=== PATIENT | female | born 1980 | race Caucasian/White ===

== ENCOUNTER → 2016-06-15 | Outpatient (REF) | payer OTHER | LOC: M SFHCWAGY 09:20 | PROVIDERS: ATTEND Nurse Practitioner Women's Health | DX: Z12.4 Encounter for screening for malignant neoplasm of cervix (principal); R87.610 Atypical squamous cells of undetermined significance on cytologic smear of cervix (ASC-US) ==

== ENCOUNTER → 2016-06-23 | Outpatient (CLI) | payer OTHER ==
--- NOTE | 2016-06-23 12:34 | REP ---
Pelvic sonography: History: Irregular menses. Findings: Transabdominal and transvaginal scanning are performed. Uterine dimensions are normal at 7.1 x 2.9 x 4.9 cm. Endometrium is 1.3 cm thick and somewhat heterogeneous. There are Nabothian cysts in the cervix. Normal ovaries are seen bilaterally. Right ovary measures 3.0 x 2.6 x 2.4 cm. Left ovary measures 3.7 x 2.3 x 1.8 cm. Visualized bladder veliz are smooth. Impression: Normal pelvic sonography.
== END ==
LOC: M WHC 10:18
PROVIDERS: ATTEND Nurse Practitioner Women's Health
DX: N92.6 Irregular menstruation, unspecified (principal); E66.01 Morbid (severe) obesity due to excess calories

== ENCOUNTER → 2016-08-03 | Outpatient (REF) | payer OTHER | LOC: M SFHCWAGY 11:59 | PROVIDERS: ATTEND Nurse Practitioner Women's Health | DX: N85.00 Endometrial hyperplasia, unspecified (principal) ==

== ENCOUNTER → 2016-09-07 | Day surgery (SDC) | payer OTHER ==
[~2016-09-07] VITALS: Ht 175.3 cm; Wt 158.8 kg
[~2016-09-07] MED LIST: IBUPROFEN 600 MG TAB PO PRN; KETOROLAC 60 MG/2 ML VIAL (J1885) As Ordered ONE; LIDOCAINE 2% INJ 100 MG/5 ML SDV (FOR ANES.) As Ordered ONE; LR 1,000 ML IV SCH; MIDAZOLAM INJ 2 MG/2 ML VIAL (J2250) As Ordered ONE; ONDANSETRON 4MG/2ML VIAL (J2405) As Ordered ONE; ONDANSETRON 4MG/2ML VIAL (J2405) IV PRN; PERCOCET 5MG/325MG TAB As Ordered ONE; PROPOFOL 200 MG/20 ML VIAL As Ordered ONE; SEVOFLURANE INHAL SOLN 250 ML BTL As Ordered ONE; TOPA50TA7 PO; fentaNYL 100 MCG/2 ML INJECTION (J3010) As Ordered ONE
[2016-09-07 10:48] LABS: CONTROL LINE UCG INT CTR LINE PRESENT
[2016-09-07] MEDS: PERCOCET 5MG/325MG TAB PO PRN ×2 (15:40→17:20)
[2016-09-07] MEDS: fentaNYL 100 MCG/2 ML INJECTION (J3010) IV PRN ×4 (15:40→15:55)
--- NOTE | 2016-09-07 16:42 | RO ---
DATE OF PROCEDURE: 09/07/2016 PREOPERATIVE DIAGNOSIS: 1. Menometrorrhagia with endometrial hyperplasia by office biopsy. POSTOPERATIVE DIAGNOSIS: 1. Menometrorrhagia with endometrial hyperplasia by office biopsy. 2. Endometrial polyps. PROCEDURE: Dilation and curettage (D and C), hysteroscopy with MyoSure resection so we were able to remove the polyps in their entirety. SURGEON: Dr. Charity Thomson OPERATIONS ACCOUNTANT: ANESTHESIA: General. DESCRIPTION OF PROCEDURE: Alyse was brought to the operating room where sufficient general anesthesia was induced, and she was draped, prepped and positioned in the usual sterile fashion, the bladder emptied and the cervix grasped with a single-tooth tenaculum. The uterus was sounded to 9 and then the cervix was carefully dilated in order to allow the introduction of the hysteroscope, which was used to visualize the endometrial cavity. At the fundus, there was a little bit just general overgrowth and vascularity to the tissues, and then in the lower uterine segment arising both from the left posterior and the right side in the midline, there were several endometrial polyps. We placed the MyoSure resector, and we were able to remove these polyps in their entirety and send them to the pathologist for further evaluation. We were also able to remove the endometrium and sample all of that area of overgrowth and vascularity of the fundus, as well as resecting the polyps completely. We were then able to see an empty uterine cavity with the endometrium resected and the polyps resected. We were able to do circumferential resection with the MyoSure and could palpate with the curette that there was normal uterine cry throughout with a final curettage just to make sure there was nothing palpably unusual about the uterus and confirm absence of other abnormal lesion, then ended the procedure. Estimated blood loss for the procedure was about 5 mL or less. Fluid replacement was crystalloid. Complications: None. Condition and Disposition: Alyse tolerated the procedure well and was recovering in the recovery room in good condition.
[2016-09-07 18:20] VITALS: BP 128/73
== END ==
LOC: M SDC 10:03
PROVIDERS: ATTEND Obstetrics & Gynecology
DX: N92.1 Excessive and frequent menstruation with irregular cycle (principal); N84.0 Polyp of corpus uteri; G43.909 Migraine, unspecified, not intractable, without status migrainosus; E66.9 Obesity, unspecified; Z79.899 Other long term (current) drug therapy; Z91.030 Bee allergy status

== ENCOUNTER → 2016-09-28 | Outpatient (CLI) | payer OTHER ==
[~2016-09-28] MED LIST changes: -IBUPROFEN 600 MG TAB PO PRN; -KETOROLAC 60 MG/2 ML VIAL (J1885) As Ordered ONE; -LIDOCAINE 2% INJ 100 MG/5 ML SDV (FOR ANES.) As Ordered ONE; -LR 1,000 ML IV SCH; -MIDAZOLAM INJ 2 MG/2 ML VIAL (J2250) As Ordered ONE; -ONDANSETRON 4MG/2ML VIAL (J2405) As Ordered ONE; -ONDANSETRON 4MG/2ML VIAL (J2405) IV PRN; -PERCOCET 5MG/325MG TAB As Ordered ONE; -PROPOFOL 200 MG/20 ML VIAL As Ordered ONE; -SEVOFLURANE INHAL SOLN 250 ML BTL As Ordered ONE; -fentaNYL 100 MCG/2 ML INJECTION (J3010) As Ordered ONE
[2016-09-28 10:56] LABS: BASO % 0.5 % (0.0-1.0); EOS # 0.2 K/mm3 (0.0-0.50); EOS % 1.9 % (0.0-3.0); LYMPH # 2.8 K/mm3 (1.5-4.5); LYMPH % 36.7 % (24.0-44.0); MEAN CORPUSCULAR HEMOGLOBIN 30.5 pg (27.0-33.0); MEAN CORPUSCULAR HGB CONC 33.7 g/dl (32.0-36.5); MEAN CORPUSCULAR VOLUME 90.4 fl (80.0-96.0); MONO # 0.5 K/mm3 (0.0-0.8); MONO % 6.1 % (0.0-5.0); NEUTROPHILS # 4.1 K/mm3 (1.8-7.7); NEUTROPHILS % 52.7 % (36.0-66.0); RED CELL DISTRIBUTION WIDTH 12.5 % (11.5-14.5); WHITE BLOOD COUNT 7.8 K/mm3 (4.0-10.0)
[2016-09-28 11:36] LABS: ALBUMIN 3.4 GM/DL (3.2-5.2); ALBUMIN/GLOBULIN RATIO 0.94 (1.00-1.93); ALKALINE PHOSPHATASE 83 U/L (45-117); ALT/SGPT 25 U/L (12-78); ANION GAP 6 MEQ/L (8-16); AST/SGOT 9 U/L (15-37); BILIRUBIN,TOTAL 0.5 MG/DL (0.2-1.0); BLOOD UREA NITROGEN 18 MG/DL (7-18); CALCIUM LEVEL 8.3 MG/DL (8.5-10.1); CARBON DIOXIDE LEVEL 27 MEQ/L (21-32); CHLORIDE LEVEL 107 MEQ/L (98-107); CHOLESTEROL LEVEL 208 MG/DL (<200); CREATININE FOR GFR 0.76 MG/DL (0.55-1.02); GLOMERULAR FILTRATION RATE > 60.0 (>60); GLUCOSE, FASTING 124 MG/DL (70-105); POTASSIUM SERUM 4.3 MEQ/L (3.5-5.1); SODIUM LEVEL 140 MEQ/L (136-145); TRIGLYCERIDES LEVEL 225 MG/DL (<150)
== END ==
LOC: M LAB 10:31
PROVIDERS: ATTEND Physician Assistant Medical
DX: G43.709 Chronic migraine without aura, not intractable, without status migrainosus (principal); E78.2 Mixed hyperlipidemia

== ENCOUNTER → 2016-12-09 | Outpatient (CLI) | payer OTHER ==
[~2016-12-09] MED LIST changes: -TOPA50TA7 PO; +TOPA50TA8 PO
--- NOTE | 2016-12-14 05:47 | SLEEPCENT ---
DATE OF PROCEDURE: 12/09/2016 ORDERED BY: Yenni Petersen. INTERPRETATION: Nocturnal polysomnography was performed for evaluation of sleep physiology in this patient with a history of excessive somnolence, snoring, morning headaches and nonrestorative sleep with comorbidities of obesity. 7 hours and 56 minutes of data were reviewed. There were 371 minutes of sleep identified. Sleep latency was prolonged at 59 minutes. REM latency was prolonged at 235 minutes. Sleep architecture initially showed poor progression but progression improved later in the study. There were 2 long REM periods appreciated. Overall sleep efficiency was 79%. The patient's EKG showed a sinus rhythm with an average heart rate of 62 beats per minute. EEG showed some worsening in background. No focal events were identified. Normal wave forms for awake and sleep were seen. There were no respiratory events identified of 10 seconds in duration or greater. The apnea-hypopnea index was 0. Significant snoring was however noted over the course of the study and respiratory related arousals from this snoring occurred 2.9 times per hour. There was significant limb activity, four trains of 30 events and limb movement arousal index of 12.9. IMPRESSION: 1. Periodic limb movement disorder (G47.61). Limb movement arousal index 12.9. 2. Snoring with respiratory related arousals 2.9 times per hour. RECOMMENDATION: Interventions to reduce the frequency of limb activity should help consolidate the patient's sleep. Additionally interventions to optimize upper airway tone may be helpful to address the snoring.
== END ==
LOC: M SLEEP 20:00
PROVIDERS: ATTEND Nurse Practitioner Adult Health
DX: G47.30 Sleep apnea, unspecified (principal)

== ENCOUNTER → 2017-01-02 | Outpatient (CLI) | payer OTHER ==
[2017-01-02 09:42] LABS: ALBUMIN 3.5 GM/DL (3.2-5.2); ALBUMIN/GLOBULIN RATIO 1.03 (1.00-1.93); ALKALINE PHOSPHATASE 68 U/L (45-117); ALT/SGPT 27 U/L (12-78); ANION GAP 7 MEQ/L (8-16); AST/SGOT 10 U/L (15-37); BILIRUBIN,TOTAL 0.7 MG/DL (0.2-1.0); BLOOD UREA NITROGEN 13 MG/DL (7-18); CALCIUM LEVEL 8.6 MG/DL (8.5-10.1); CARBON DIOXIDE LEVEL 26 MEQ/L (21-32); CHLORIDE LEVEL 109 MEQ/L (98-107); CHOLESTEROL LEVEL 175 MG/DL (<200); GLOMERULAR FILTRATION RATE > 60.0 (>60); GLUCOSE, FASTING 100 MG/DL (70-105); POTASSIUM SERUM 4.3 MEQ/L (3.5-5.1); SODIUM LEVEL 142 MEQ/L (136-145); TOTAL PROTEIN 6.9 GM/DL (6.4-8.2); TRIGLYCERIDES LEVEL 135 MG/DL (<150)
== END ==
LOC: M LAB 08:16
PROVIDERS: ATTEND Physician Assistant Medical
DX: E78.2 Mixed hyperlipidemia (principal); E55.9 Vitamin D deficiency, unspecified; R73.9 Hyperglycemia, unspecified

== ENCOUNTER → 2017-01-10 | Outpatient (CLI) | payer OTHER ==
[~2017-01-10] MED LIST changes: +E-Z-GAS II EFFERVESCENT PACKET (SODIUM BICARB./CITRIC ACID/SIMETHICONE) As Ordered ONE; +E-Z-HD 98% w/w 340GM SUSP BTL As Ordered ONE; +E-Z-PAQUE 96% w/w SUSP 176GM BTL As Ordered ONE
--- NOTE | 2017-01-10 21:11 | REP ---
ESOPHAGRAM: The procedure was performed by VELIA Ríos under the direct supervision of Dr. Morin. All imaging was reviewed with Dr. Morin prior to dictation. The patient was able to ingest liquid barium and air in a quantity sufficient to produce a double contrast examination. The oral and pharyngeal stages of deglutition were within normal limits. Esophageal transport was prompt and efficient. There was no evidence of esophagitis, stricture, mucosal ring or hiatal hernia. Gastroesophageal reflux was not observed on this exam. IMPRESSION: Unremarkable double contrast esophagram Reviewed by VELIA Hi 01/11/2017 11:14 AEdited and Signed by Malvin Morin MD 01/11/2017 03:08 P
== END ==
LOC: M RAD 09:04
PROVIDERS: ATTEND Physician Assistant Medical
DX: R13.10 Dysphagia, unspecified (principal)

== ENCOUNTER → 2017-02-27 | Outpatient (REF) | payer OTHER ==
[~2017-02-27] MED LIST changes: -E-Z-GAS II EFFERVESCENT PACKET (SODIUM BICARB./CITRIC ACID/SIMETHICONE) As Ordered ONE; -E-Z-HD 98% w/w 340GM SUSP BTL As Ordered ONE; -E-Z-PAQUE 96% w/w SUSP 176GM BTL As Ordered ONE
== END ==
LOC: M SFHCWAGY 10:28
PROVIDERS: ATTEND Nurse Practitioner Women's Health
DX: N85.2 Hypertrophy of uterus (principal); D26.0 Other benign neoplasm of cervix uteri

== ENCOUNTER 2017-06-29 08:06 | Emergency (ER) | payer OTHER ==
[2017-06-29] MEDS: NORCO, ANEXSIA 5/325MG TABLET (HYDROcodone/ACETAMINOPHEN) PO (09:45)
[2017-06-29] MEDS: CYCLOBENZAPRINE 10 MG TAB PO (09:46)
== END 2017-06-29 11:16 | disposition home or self-care (01) ==
LOC: M ED 08:06
DX: S43.401A Unspecified sprain of right shoulder joint, initial encounter (principal); S39.012A Strain of muscle, fascia and tendon of lower back, initial encounter; M47.812 Spondylosis without myelopathy or radiculopathy, cervical region; W18.2XXA Fall in (into) shower or empty bathtub, initial encounter; Y92.098 Other place in other non-institutional residence as the place of occurrence of the external cause; Z87.891 Personal history of nicotine dependence; Z91.030 Bee allergy status; Z79.899 Other long term (current) drug therapy
CPT/HCPCS: 72040

== ENCOUNTER 2017-07-17 13:18 | Outpatient (RCR) | payer OTHER | END 2017-07-18 | LOC: M PT 13:18 | DX: Z51.89 Encounter for other specified aftercare (principal); M54.2 Cervicalgia | CPT/HCPCS: 97110 ==

== ENCOUNTER 2017-07-26 17:21 | Emergency (ER) | payer OTHER ==
[2017-07-26 20:18] LABS: INFLUENZA A AMPLIFICATION NEGATIVE (NEGATIVE); INFLUENZA B AMPLIFICATION NEGATIVE (NEGATIVE)
[2017-07-26] MEDS: IBUPROFEN 600 MG TAB PO (20:58)
== END 2017-07-26 21:07 | disposition home or self-care (01) ==
LOC: M ED 17:21
DX: J01.90 Acute sinusitis, unspecified (principal); B00.9 Herpesviral infection, unspecified; K21.9 Gastro-esophageal reflux disease without esophagitis; G43.909 Migraine, unspecified, not intractable, without status migrainosus; J30.2 Other seasonal allergic rhinitis; Z79.899 Other long term (current) drug therapy; Z91.030 Bee allergy status
CPT/HCPCS: 87502

== ENCOUNTER → 2017-09-04 | Outpatient (CLI) | payer OTHER ==
[2017-09-04 11:25] LABS: HEMATOCRIT 41.9 % (36.0-47.0); HEMOGLOBIN 14.4 g/dl (12.0-15.5); MEAN CORPUSCULAR HEMOGLOBIN 29.6 pg (27.0-33.0); MEAN CORPUSCULAR HGB CONC 34.4 g/dl (32.0-36.5); MEAN CORPUSCULAR VOLUME 86.2 fl (80.0-96.0); PLATELET COUNT, AUTOMATED 326 10^3/uL (150-450); RED BLOOD COUNT 4.86 10^6/uL (4.00-5.40); RED CELL DISTRIBUTION WIDTH 12.5 % (11.5-14.5); WHITE BLOOD COUNT 6.8 10^3/uL (4.0-10.0)
[2017-09-04 12:14] LABS: TOTAL 25(OH) VITAMIN D 62.5 NG/ML (30.0-100.0); TOTAL T3 158.3 NG/DL (60.0-181.0)
[2017-09-04 12:15] LABS: VITAMIN B12 LEVEL 868 PG/ML (247-911)
[2017-09-04 12:39] LABS: ALBUMIN 4.1 GM/DL (3.2-5.2); ALBUMIN/GLOBULIN RATIO 1.03 (1.00-1.93); ALKALINE PHOSPHATASE 82 U/L (45-117); ALT/SGPT 31 U/L (12-78); ANION GAP 8 MEQ/L (8-16); AST/SGOT 18 U/L (7-37); BILIRUBIN,TOTAL 1.4 MG/DL (0.2-1.0); BLOOD UREA NITROGEN 11 MG/DL (7-18); CALCIUM LEVEL 9.3 MG/DL (8.5-10.1); CARBON DIOXIDE LEVEL 24 MEQ/L (21-32); CHLORIDE LEVEL 109 MEQ/L (98-107); CHOLESTEROL LEVEL 214 MG/DL (<200); CHOLESTEROL RISK RATIO 6.294 (<5); CREATININE FOR GFR 0.83 MG/DL (0.55-1.30); GLOMERULAR FILTRATION RATE > 60.0 (>60); GLUCOSE, FASTING 96 MG/DL (70-100); HDL CHOLESTEROL 34 MG/DL (>40); IRON (FE) 88 UG/DL (50-170); NON-HDL-C 180 MG/DL; PERCENT SATURATION 22.5 % (13.2-45.0); POTASSIUM SERUM 4.3 MEQ/L (3.5-5.1); SODIUM LEVEL 141 MEQ/L (136-145); THYROXINE (T4) 11.6 UG/DL (4.5-12.0); TOTAL IRON BINDING CAPACITY 391 UG/DL (250-450); TOTAL PROTEIN 8.1 GM/DL (6.4-8.2); TRIGLYCERIDES LEVEL 145 MG/DL (<150)
== END ==
LOC: M LAB 10:57
DX: I10 Essential (primary) hypertension (principal); R53.83 Other fatigue; E03.9 Hypothyroidism, unspecified
CPT/HCPCS: 71046

== ENCOUNTER 2017-11-09 14:11 | Emergency (ER) | payer OTHER ==
[2017-11-09] MEDS ORDERED: NS 1,000 ML IV (14:45)
[2017-11-09] MEDS: NS 1,000 ML IV (14:45)
[2017-11-09 14:52] LABS: BEDSIDE GLUCOSE 103 MG/DL (70-105)
[2017-11-09 15:04] LABS: CALCIUM OXALATE CRYSTALS RFX LARGE; KETONE, URINE AUTO RFX NEGATIVE (NEGATIVE); LEUKOCYTE ESTERASE UR AUTO RFX TRACE (NEGATIVE); MUCUS, URINE RFX SMALL (NEGATIVE); NITRITE, URINE AUTO RFX NEGATIVE (NEGATIVE); RBC, URINE AUTO RFX 5 /HPF (0-3); SPECIFIC GRAVITY UR AUTO RFX 1.027 (1.002-1.035); SQUAM EPITHELIAL CELL UR AURFX 5 /HPF (0-6); WBC, URINE AUTO RFX 5 /HPF (0-3)
[2017-11-09 15:15] LABS: BASO % 0.4 % (0.0-1.0); EOS # 0.1 10^3/uL (0.0-0.50); EOS % 1.8 % (0.0-3.0); HEMATOCRIT 38.9 % (36.0-47.0); HEMOGLOBIN 13.5 g/dl (12.0-15.5); IMMATURE GRANULOCYTE % 0.1 % (0-3.0); LYMPH % 39.1 % (24.0-44.0); MEAN CORPUSCULAR HEMOGLOBIN 30.3 pg (27.0-33.0); MEAN CORPUSCULAR HGB CONC 34.7 g/dl (32.0-36.5); MEAN CORPUSCULAR VOLUME 87.4 fl (80.0-96.0); MONO # 0.8 10^3/uL (0.0-0.8); MONO % 10.2 % (0.0-5.0); NEUTROPHILS # 3.7 10^3/uL (1.8-7.7); NEUTROPHILS % 48.4 % (36.0-66.0); PLATELET COUNT, AUTOMATED 249 10^3/uL (150-450); RED BLOOD COUNT 4.45 10^6/uL (4.00-5.40); RED CELL DISTRIBUTION WIDTH 13.4 % (11.5-14.5); WHITE BLOOD COUNT 7.6 10^3/uL (4.0-10.0)
[2017-11-09 15:56] LABS: ALBUMIN/GLOBULIN RATIO 1.05 (1.00-1.93); ALKALINE PHOSPHATASE 79 U/L (45-117); ALT/SGPT 74 U/L (12-78); AMYLASE 23 U/L (25-115); ANION GAP 8 MEQ/L (8-16); AST/SGOT 36 U/L (7-37); BILIRUBIN,DIRECT 0.3 MG/DL (0.0-0.2); BILIRUBIN,TOTAL 1.4 MG/DL (0.2-1.0); BLOOD UREA NITROGEN 7 MG/DL (7-18); CALCIUM LEVEL 9.2 MG/DL (8.5-10.1); CARBON DIOXIDE LEVEL 28 MEQ/L (21-32); CHLORIDE LEVEL 106 MEQ/L (98-107); CREATININE FOR GFR 0.85 MG/DL (0.55-1.30); GLOMERULAR FILTRATION RATE > 60.0 (>60); GLUCOSE, FASTING 88 MG/DL (70-100); LIPASE 107 U/L (73-393); POTASSIUM SERUM 3.7 MEQ/L (3.5-5.1); SODIUM LEVEL 142 MEQ/L (136-145); TOTAL PROTEIN 7.8 GM/DL (6.4-8.2)
[2017-11-09 16:17] LABS: CK-MB VALUE MASS < 1.0 NG/ML (<3.6); CPK CREATINE PHOSPHOKINASE 60 U/L (26-192); MB/CK RELATIVE INDEX 1.66 (< OR =4); TROPONIN I < 0.02 NG/ML (< 0.10)
== END 2017-11-09 17:30 | disposition home or self-care (01) ==
LOC: M ED 14:11
DX: N39.0 Urinary tract infection, site not specified (principal); R53.83 Other fatigue; I10 Essential (primary) hypertension; Z98.84 Bariatric surgery status; Z72.0 Tobacco use; Z79.899 Other long term (current) drug therapy; Z91.030 Bee allergy status
CPT/HCPCS: 93005

== ENCOUNTER → 2017-11-14 | Outpatient (CLI) | payer OTHER ==
[2017-11-14 09:10] LABS: BASO % 0.5 % (0.0-1.0); EOS # 0.2 10^3/uL (0.0-0.50); EOS % 4.2 % (0.0-3.0); HEMATOCRIT 38.9 % (36.0-47.0); IMMATURE GRANULOCYTE % 0.2 % (0-3.0); LYMPH # 1.8 10^3/uL (1.5-4.5); LYMPH % 44.9 % (24.0-44.0); MEAN CORPUSCULAR HEMOGLOBIN 29.8 pg (27.0-33.0); MEAN CORPUSCULAR HGB CONC 33.4 g/dl (32.0-36.5); MEAN CORPUSCULAR VOLUME 89.2 fl (80.0-96.0); MONO # 0.5 10^3/uL (0.0-0.8); MONO % 11.2 % (0.0-5.0); NEUTROPHILS # 1.6 10^3/uL (1.8-7.7); PLATELET COUNT, AUTOMATED 232 10^3/uL (150-450); RED BLOOD COUNT 4.36 10^6/uL (4.00-5.40); RED CELL DISTRIBUTION WIDTH 13.9 % (11.5-14.5)
[2017-11-14 09:11] LABS: HEMATOCRIT 38.9 % (36.0-47.0)
[2017-11-14 09:29] LABS: ESTIMATED AVERAGE GLUCOSE 97 MG/DL (60-110)
[2017-11-14 09:33] LABS: ALBUMIN 3.6 GM/DL (3.2-5.2); ALBUMIN/GLOBULIN RATIO 1.09 (1.00-1.93); ALKALINE PHOSPHATASE 80 U/L (45-117); ALT/SGPT 58 U/L (12-78); ANION GAP 9 MEQ/L (8-16); AST/SGOT 26 U/L (7-37); BILIRUBIN,TOTAL 1.2 MG/DL (0.2-1.0); BLOOD UREA NITROGEN 7 MG/DL (7-18); CALCIUM LEVEL 8.4 MG/DL (8.5-10.1); CARBON DIOXIDE LEVEL 27 MEQ/L (21-32); CHLORIDE LEVEL 110 MEQ/L (98-107); CREATININE FOR GFR 0.66 MG/DL (0.55-1.30); FERRITIN 168 NG/ML (8-252); GLOMERULAR FILTRATION RATE > 60.0 (>60); GLUCOSE, FASTING 94 MG/DL (70-100); IRON (FE) 72 UG/DL (50-170); MAGNESIUM LEVEL 2.1 MG/DL (1.8-2.4); PERCENT SATURATION 20.7 % (13.2-45.0); PHOSPHORUS LEVEL 3.8 MG/DL (2.5-4.9); POTASSIUM SERUM 4.3 MEQ/L (3.5-5.1); SODIUM LEVEL 146 MEQ/L (136-145); TOTAL IRON BINDING CAPACITY 348 UG/DL (250-450); TOTAL PROTEIN 6.9 GM/DL (6.4-8.2)
[2017-11-14 09:38] LABS: TOTAL 25(OH) VITAMIN D 61.3 NG/ML (30.0-100.0); VITAMIN B12 LEVEL 1716 PG/ML (247-911)
[2017-11-16 14:54] LABS: PRETREATED FOLATE FOR RBCFOL 14.1 NG/ML; RBC FOLATE 761.2 NG/ML (280-791)
[2017-11-17 12:02] LABS: VITAMIN B1 LEVEL WHOLE BLOOD 112.4 nmol/L (66.5-200.0)
== END ==
LOC: M LAB 08:20
DX: E55.9 Vitamin D deficiency, unspecified (principal); K91.2 Postsurgical malabsorption, not elsewhere classified; Z98.84 Bariatric surgery status
CPT/HCPCS: 83550

== ENCOUNTER 2018-04-20 13:05 | Emergency (ER) | payer OTHER | END 2018-04-20 15:27 | disposition home or self-care (01) | LOC: M ED 13:05 | DX: J06.9 Acute upper respiratory infection, unspecified (principal); Z98.84 Bariatric surgery status | CPT/HCPCS: 87633 ==

== ENCOUNTER → 2018-05-26 | Outpatient (CLI) | payer OTHER ==
[~2018-05-26] MED LIST changes: +CEFD1CAP8 PO; +CETI10TA; +CYCL10TA PO; +DIFL150T PO; +MACR100C43 PO; +MEGE20TA3; +NORCOTAB PO; +OMEP40CA2; +VALT500T PO; +VITA50005
[2018-05-26 11:31] LABS: BASO % 0.3 % (0.0-1.0); EOS # 0.1 10^3/uL (0.0-0.50); EOS % 1.6 % (0.0-3.0); HEMATOCRIT 38.8 % (36.0-47.0); HEMOGLOBIN 13.4 g/dl (12.0-15.5); LYMPH # 2.9 10^3/uL (1.5-4.5); MEAN CORPUSCULAR HEMOGLOBIN 31.1 pg (27.0-33.0); MEAN CORPUSCULAR HGB CONC 34.5 g/dl (32.0-36.5); MONO # 0.6 10^3/uL (0.0-0.8); MONO % 8.5 % (0.0-5.0); NEUTROPHILS # 2.9 10^3/uL (1.8-7.7); NEUTROPHILS % 44.4 % (36.0-66.0); PLATELET COUNT, AUTOMATED 292 10^3/uL (150-450); RED BLOOD COUNT 4.31 10^6/uL (4.00-5.40); WHITE BLOOD COUNT 6.5 10^3/uL (4.0-10.0)
[2018-05-26 11:33] LABS: HEMATOCRIT 38.8 % (36.0-47.0)
[2018-05-26 12:08] LABS: ALBUMIN 3.8 GM/DL (3.2-5.2); ALT/SGPT 44 U/L (12-78); BILIRUBIN,TOTAL 0.8 MG/DL (0.2-1.0); BLOOD UREA NITROGEN 12 MG/DL (7-18); CALCIUM LEVEL 8.9 MG/DL (8.5-10.1); CARBON DIOXIDE LEVEL 25 MEQ/L (21-32); CHLORIDE LEVEL 107 MEQ/L (98-107); CREATININE FOR GFR 0.74 MG/DL (0.55-1.30); FERRITIN 182 NG/ML (8-252); GLOMERULAR FILTRATION RATE > 60.0 (>60); GLUCOSE, FASTING 100 MG/DL (70-100); IRON (FE) 80 UG/DL (50-170); MAGNESIUM LEVEL 2.2 MG/DL (1.8-2.4); PERCENT SATURATION 22.2 % (13.2-45.0); PHOSPHORUS LEVEL 3.4 MG/DL (2.5-4.9); POTASSIUM SERUM 3.9 MEQ/L (3.5-5.1); SODIUM LEVEL 141 MEQ/L (136-145); TOTAL IRON BINDING CAPACITY 360 UG/DL (250-450)
== END ==
LOC: M LAB 11:02
PROVIDERS: ATTEND Surgery
DX: K91.2 Postsurgical malabsorption, not elsewhere classified (principal); Z98.84 Bariatric surgery status; E55.9 Vitamin D deficiency, unspecified

== ENCOUNTER 2018-07-05 20:55 | Emergency (ER) | payer OTHER ==
[~2018-07-05] VITALS: Ht 175.3 cm; Wt 120.9 kg
[2018-07-05] MEDS ORDERED: NS 1,000 ML IV ONE (21:30)
[2018-07-05] MEDS ORDERED: PANTOPRAZOLE 40MG INJ (PROTONIX) (C9113) IV ONE (21:30)
[2018-07-05] MEDS ORDERED: METOCLOPRAMIDE INJ 10MG/2ML VIAL (J2765) IV ONE (21:30)
[2018-07-05 22:24] LABS: BASO % 0.4 % (0.0-1.0); EOS # 0.1 10^3/uL (0.0-0.50); EOS % 1.4 % (0.0-3.0); HEMOGLOBIN 14.4 g/dl (12.0-15.5); LYMPH # 3.9 10^3/uL (1.5-4.5); MEAN CORPUSCULAR HEMOGLOBIN 31.2 pg (27.0-33.0); MEAN CORPUSCULAR HGB CONC 34.3 g/dl (32.0-36.5); MEAN CORPUSCULAR VOLUME 90.9 fl (80.0-96.0); MONO # 0.7 10^3/uL (0.0-0.8); MONO % 6.9 % (0.0-5.0); NEUTROPHILS # 5.2 10^3/uL (1.8-7.7); NEUTROPHILS % 51.9 % (36.0-66.0); PLATELET COUNT, AUTOMATED 323 10^3/uL (150-450); RED BLOOD COUNT 4.62 10^6/uL (4.00-5.40); WHITE BLOOD COUNT 10.1 10^3/uL (4.0-10.0)
[2018-07-05 22:53] LABS: ALBUMIN 3.9 GM/DL (3.2-5.2); ALT/SGPT 51 U/L (12-78); BILIRUBIN,DIRECT 0.2 MG/DL (0.0-0.2); BILIRUBIN,TOTAL 0.8 MG/DL (0.2-1.0); BLOOD UREA NITROGEN 15 MG/DL (7-18); CALCIUM LEVEL 8.9 MG/DL (8.5-10.1); CARBON DIOXIDE LEVEL 24 MEQ/L (21-32); CHLORIDE LEVEL 108 MEQ/L (98-107); CREATININE FOR GFR 0.74 MG/DL (0.55-1.30); GLOMERULAR FILTRATION RATE > 60.0 (>60); GLUCOSE, FASTING 95 MG/DL (70-100); LIPASE 149 U/L (73-393); POTASSIUM SERUM 4.3 MEQ/L (3.5-5.1); SODIUM LEVEL 140 MEQ/L (136-145); TOTAL PROTEIN 7.5 GM/DL (6.4-8.2)
[2018-07-05 23:04] LABS: HCG, SERUM QUALITATIVE NEGATIVE (NEGATIVE)
--- NOTE | 2018-07-06 00:13 | REPVR ---
EXAM: CT Abdomen and Pelvis Without Contrast EXAM DATE/TIME: 07/05/2018 9:17 PM CLINICAL HISTORY: 37 years old, female; Pain; Abdominal pain; Generalized; Additional info: Abd pain TECHNIQUE: Axial computed tomography images of the abdomen and pelvis without contrast. All CT scans at this facility use at least one of these dose optimization techniques: automated exposure control; mA and/or kV adjustment per patient size (includes targeted exams where dose is matched to clinical indication); or iterative reconstruction. Coronal and sagittal reformatted images were created and reviewed. COMPARISON: PELVIS NON-OB COMPLETE US 06/23/2016 11:24 AM FINDINGS: Lower thorax: Clear lung bases. The heart is normal in size. There is no evidence of pericardial effusion. ABDOMEN: Liver: Normal liver. Gallbladder and bile ducts: Normal gallbladder. Pancreas: Normal pancreas. Spleen: Normal spleen. Adrenals: 2.3 CM by 1.3 CM oval nodule of the left adrenal gland probably an adenoma. Recommend followup CT scan in 6 months for reevaluation to document stability. Kidneys and ureters: There is no evidence of calcified stone right or left kidney. The urinary bladder is empty and cannot be evaluated. There is a 3 cm exophytic cyst upper pole left kidney. Stomach and bowel: The cecum is in the right pelvis. The patient has had a gastric bypass with multiple surgical clips in the left upper quadrant. Mild distention of loops of small bowel in the lower abdomen with bubbly fecal-like material. This may be secondary to ileus or enteritis. If there are further symptoms a CT scan with oral contrast might be considered. Appendix: Normal appearing appendix. Reproductive: Normal uterus. Normal sized ovaries. ABDOMEN and PELVIS: Intraperitoneal space: There is no evidence of pneumoperitoneum. There is no evidence of free fluid in the abdomen or the pelvis. Bones/joints: No acute fracture. No dislocation. Soft tissues: Unremarkable. Vasculature: The aorta is normal in size. Lymph nodes: There is no evidence of lymphadenopathy. IMPRESSION: 1. The patient has had a previous gastric bypass with surgical clips at the left upper quadrant. 2. There are mildly dilated loops of small bowel in the lower abdomen with bubbly fecal-like material. This could be the result of ileus or enteritis. However there are continued symptoms a followup CT with oral contrast would be helpful. 3. Oval nodule of the right adrenal gland probably an adenoma. Recommend followup CT scan in 6 months for reevaluation of this to document stability. Electronically signed by: Obey Wolf On 07/06/2018 00:13:01 AM
[2018-07-06 00:45] VITALS: BP 118/80
--- NOTE | 2018-07-15 18:50 | ED PDOC ---
Post-Departure Follow-Up dr blue faxed formal report of ct abd/p for fu Apple Brantley MD Jul 15, 2018 18:50
== END 2018-07-06 00:51 | disposition home or self-care (01) ==
LOC: M ED 20:55
DX: K56.7 Ileus, unspecified (principal)
CPT/HCPCS: 74176; 80048; 80076; 81001; 83690; 84703; 85025; 96374; 96375; 99284; C9113; J2765

== ENCOUNTER 2018-08-13 21:05 | Emergency (ER) | payer OTHER ==
[~2018-08-13] VITALS: Ht 175.3 cm; Wt 119.1 kg
[~2018-08-13 21:05] MED LIST changes: +HYDR-3715 PO; -NORCOTAB PO
[2018-08-13 22:16] LABS: INFLUENZA A AMPLIFICATION NEGATIVE (NEGATIVE); INFLUENZA B AMPLIFICATION NEGATIVE (NEGATIVE)
[2018-08-14] MEDS ORDERED: AUGM875T28 PO (00:48)
[2018-08-14] MEDS ORDERED: TESS100C PO (00:48)
[2018-08-14 00:57] VITALS: BP 117/72
[2018-08-14] MEDS ORDERED: BENZONATATE 100 MG CAP PO ONE (01:00)
[2018-08-14] MEDS ORDERED: AUGMENTIN 875 MG TAB PO ONE (01:00)
== END 2018-08-14 01:03 | disposition home or self-care (01) ==
LOC: M ED 21:05
DX: H66.90 Otitis media, unspecified, unspecified ear (principal)

== ENCOUNTER 2018-12-06 13:38 | Emergency (ER) | payer OTHER ==
[~2018-12-06] VITALS: Ht 175.3 cm; Wt 113.6 kg
[~2018-12-06 13:38] MED LIST changes: +AUGM875T28 PO; +TESS100C PO
[2018-12-06 14:14] LABS: BASO % 0.1 % (0.0-1.0); EOS # 0.2 10^3/uL (0.0-0.50); EOS % 2.3 % (0.0-3.0); HEMATOCRIT 38.1 % (36.0-47.0); HEMOGLOBIN 12.9 g/dl (12.0-15.5); LYMPH # 2.5 10^3/uL (1.5-4.5); LYMPH % 32.5 % (24.0-44.0); MEAN CORPUSCULAR HEMOGLOBIN 31.2 pg (27.0-33.0); MEAN CORPUSCULAR HGB CONC 33.9 g/dl (32.0-36.5); MONO # 0.6 10^3/uL (0.0-0.8); MONO % 8.2 % (0.0-5.0); NEUTROPHILS # 4.3 10^3/uL (1.8-7.7); NEUTROPHILS % 56.6 % (36.0-66.0); PLATELET COUNT, AUTOMATED 263 10^3/uL (150-450); RED BLOOD COUNT 4.14 10^6/uL (4.00-5.40); WHITE BLOOD COUNT 7.7 10^3/uL (4.0-10.0)
[2018-12-06 14:41] LABS: BLOOD UREA NITROGEN 14 MG/DL (7-18); CALCIUM LEVEL 8.7 MG/DL (8.5-10.1); CARBON DIOXIDE LEVEL 26 MEQ/L (21-32); CHLORIDE LEVEL 111 MEQ/L (98-107); CREATININE FOR GFR 0.69 MG/DL (0.55-1.30); GLOMERULAR FILTRATION RATE > 60.0 (>60); GLUCOSE, FASTING 93 MG/DL (70-100); POTASSIUM SERUM 4.4 MEQ/L (3.5-5.1); SODIUM LEVEL 142 MEQ/L (136-145)
[2018-12-06 14:42] LABS: ALBUMIN 3.7 GM/DL (3.2-5.2); ALT/SGPT 26 U/L (12-78); BILIRUBIN,DIRECT 0.3 MG/DL (0.0-0.2); LIPASE 161 U/L (73-393)
[2018-12-06] MEDS ORDERED: ISOVUE-370 76% 100ML VIAL (Q9967) As Ordered ONE (15:21)
[2018-12-06 15:29] LABS: CK-MB VALUE MASS < 1.0 NG/ML (<3.6); CPK CREATINE PHOSPHOKINASE 87 U/L (26-192); MB/CK RELATIVE INDEX 1.15 (< OR =4); TROPONIN I < 0.02 NG/ML (< 0.10)
[2018-12-06] MEDS ORDERED: SUCRALFATE SUSP 1GM/10ML UD PO ONE (15:30)
--- NOTE | 2018-12-06 16:57 | REP ---
CT ABDOMEN AND PELVIS WITH IV CONTRAST: TECHNIQUE: Axial contrast enhanced images from the lung bases to the pubic symphysis using 100 mL Isovue 370 intravenous contrast material with multiplanar reformations. Visualized lung bases demonstrate no infiltrate. The liver, spleen and left adrenal are unremarkable. Right adrenal demonstrates a nodule which is unchanged since the 07/05/2018 examination, most consistent with an adrenal adenoma measuring approximately 2 cm in diameter. Pancreas and right kidney are unremarkable. There is a left renal cyst superiorly and laterally 3.5 cm in maximum diameter. There is no hydronephrosis bilaterally. There is no abdominal aortic aneurysm. There is no adenopathy. There is no free air. I see no bowel wall thickening. There is no evidence of appendicitis. There is trace free fluid in the pelvis likely physiologic in nature. The ovaries appear normal with no evidence of pelvic mass. The urinary bladder is mildly distended and grossly unremarkable. No anterior abdominal wall defect is seen. IMPRESSION: Trace free fluid in the pelvis is likely physiologic in nature. Right adrenal nodule most consistent with an adenoma approximately 2.0 cm in diameter. Left renal cyst. No acute bowel inflammation seen. No free air or other acute finding. Electronically Signed by Malvin Morin MD 12/08/2018 07:30 P
[2018-12-06] MEDS ORDERED: SUCR1SS PO (17:02)
[2018-12-06] MEDS ORDERED: PEPC1TAB5 PO (17:02)
[2018-12-06 18:06] VITALS: BP 107/69
--- NOTE | 2018-12-06 21:12 | ECGEPIP ---
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
--- NOTE | 2018-12-10 12:28 | ED PDOC ---
Post-Departure Follow-Up dr blue faxed formal report of ct abd/p for fu Apple Brantley MD Dec 10, 2018 12:28
== END 2018-12-06 17:35 | disposition home or self-care (01) ==
LOC: M ED 13:38
DX: R10.9 Unspecified abdominal pain (principal); R11.0 Nausea; I10 Essential (primary) hypertension; Z79.899 Other long term (current) drug therapy; Z91.030 Bee allergy status
CPT/HCPCS: 36415; 74177; 80048; 80076; 81001; 82550; 82553; 83690; 84702; 85025; 93005; 99284; Q9967

== ENCOUNTER 2018-12-19 20:56 | Emergency (ER) | payer OTHER ==
[~2018-12-19] VITALS: Ht 175.3 cm; Wt 104.5 kg
[~2018-12-19 20:56] MED LIST changes: +PEPC1TAB5 PO; +SUCR1SS PO
[2018-12-19 20:57] VITALS: BP 122/77
[2018-12-19] MEDS ORDERED: ALL10TAB28 (21:06)
[2018-12-19] MEDS ORDERED: TRIA37.53 (21:06)
[2018-12-19] MEDS ORDERED: SUCR1TAB56 (21:06)
[2018-12-19] MEDS ORDERED: FAMO1TAB11 (21:06)
[2018-12-19] MEDS ORDERED: VITA500045 (21:06)
[2018-12-19] MEDS ORDERED: OMEP-221 (21:06)
[2018-12-20] MEDS ORDERED: traMADol 50 MG TAB PO ONE (00:15)
== END 2018-12-20 00:24 | disposition home or self-care (01) ==
LOC: M ED 20:56
DX: S09.90XA Unspecified injury of head, initial encounter (principal); W22.8XXA Striking against or struck by other objects, initial encounter; Y92.018 Other place in single-family (private) house as the place of occurrence of the external cause; K21.9 Gastro-esophageal reflux disease without esophagitis; Z79.899 Other long term (current) drug therapy; Z91.030 Bee allergy status

== ENCOUNTER 2019-02-16 14:29 | Emergency (ER) | payer OTHER ==
[~2019-02-16] VITALS: Ht 175.3 cm; Wt 114.0 kg
[~2019-02-16 14:29] MED LIST changes: +ALL10TAB29; +FAMO1TAB11; +OMEP-221; +SUCR1TAB56; +TRIA37.53; +VITA500045
[2019-02-16 15:28] LABS: BASO % 0.3 % (0.0-1.0); EOS # 0.1 10^3/uL (0.0-0.5); HEMATOCRIT 37.1 % (36.0-47.0); HEMOGLOBIN 12.8 g/dl (12.0-15.5); LYMPH # 2.5 10^3/uL (1.5-5.0); LYMPH % 34.6 % (24.0-44.0); MEAN CORPUSCULAR HGB CONC 34.5 g/dl (32.0-36.5); MEAN CORPUSCULAR VOLUME 92.8 fl (80.0-96.0); MONO # 0.5 10^3/uL (0.0-0.8); MONO % 7.5 % (0.0-5.0); NEUTROPHILS # 4.1 10^3/uL (1.5-8.5); NEUTROPHILS % 56.3 % (36.0-66.0); PLATELET COUNT, AUTOMATED 256 10^3/uL (150-450); WHITE BLOOD COUNT 7.2 10^3/uL (4.0-10.0)
[2019-02-16] MEDS ORDERED: NS 1,000 ML IV ONE (16:00)
[2019-02-16] MEDS ORDERED: MORPHINE 4 MG/ML 1ML VIAL/SYRINGE (J2270) IV ONE (16:00)
[2019-02-16] MEDS ORDERED: ONDANSETRON 4MG/2ML VIAL (J2405) IV ONE (16:00)
[2019-02-16 16:01] LABS: ALBUMIN 3.5 GM/DL (3.2-5.2); ALT/SGPT 18 U/L (12-78); BILIRUBIN,DIRECT 0.3 MG/DL (0.0-0.2); BILIRUBIN,TOTAL 1.1 MG/DL (0.2-1.0); BLOOD UREA NITROGEN 7 MG/DL (7-18); CALCIUM LEVEL 8.7 MG/DL (8.5-10.1); CARBON DIOXIDE LEVEL 28 MEQ/L (21-32); CHLORIDE LEVEL 108 MEQ/L (98-107); CREATININE FOR GFR 0.61 MG/DL (0.55-1.30); GLOMERULAR FILTRATION RATE > 60.0 (>60); GLUCOSE, FASTING 89 MG/DL (70-100); LIPASE 119 U/L (73-393); POTASSIUM SERUM 3.9 MEQ/L (3.5-5.1); SODIUM LEVEL 141 MEQ/L (136-145); TOTAL PROTEIN 6.3 GM/DL (6.4-8.2)
[2019-02-16] MEDS ORDERED: KETOROLAC 30 MG/ML VIAL (J1885) IV ONE (17:00)
[2019-02-16] MEDS ORDERED: SIME180C PO (19:15)
[2019-02-16 19:22] VITALS: BP 106/67
--- NOTE | 2019-02-16 19:33 | REPVR ---
PROCEDURE INFORMATION: Exam: US Pelvis Complete, Transabdominal and US Pelvis, Transvaginal Exam date and time: 02/16/2019 6:16 PM Clinical history: 38 years old, female; Abdominal pain; Lower abdomen; Additional info: Lower abd pain TECHNIQUE: Imaging protocol: Real-time transabdominal and transvaginal pelvic ultrasound (complete) with image documentation. Transvaginal imaging was used for better evaluation of the endometrium and adnexa. COMPARISON: PELVIS NON-OB COMPLETE US 06/23/2016 11:24 AM FINDINGS: Uterus/cervix: The uterus measures 8 CM in length by 3.2 CM in AP dimension by 4.9 CM in transverse dimension. The uterus is also anteverted. The endometrium measures approximately 7 mm in thickness and appearing within the range of normal. Small nabothian cysts are noted of the cervix. Right adnexa: The right ovary measures 3.8 CM in length by 2.6 CM in thickness. There are small follicular cysts in the right ovary. There is vascular flow of the right ovary with no evidence of torsion. Left adnexa: The left ovary measures 3 CM in length by 2.8 CM in thickness. There are follicular cysts on both ovaries. There is vascular flow the left ovary with no evidence of torsion. Free fluid: There is a small to moderate amount of free fluid within the lower pelvis. Bladder: The urinary bladder cannot be completely evaluated because there is only a small amount of air within. IMPRESSION: 1. Small to moderate amount of free fluid in the lower pelvis. 2. Normal-appearing ovaries. Electronically signed by: Obey Wolf On 02/16/2019 19:32:52 PM
--- NOTE | 2019-02-17 08:18 | REP ---
ACUTE ABDOMINAL SERIES: 02/16/2019. Clinical history: Lower abdominal pain. Comparison: PA chest 09/04/2017, CT abdomen pelvis 12/06/2018. Findings: PA chest. Lungs adequately inflated. There is no infiltrate, effusion, atelectasis or mass. There is no free air under the diaphragm. Aorta and airway intact. Bones unremarkable. Flat upright abdomen: Two views supine and one upright show nonspecific gas pattern. There are a couple of air-fluid levels in nondilated bowel loops in the upper abdomen. I see no perforation or free air evident on this study. No abnormal soft-tissue calcification. No visible mass or acute bony finding. Impression: 1. Nonspecific gas pattern without obstruction, mass or free air. A few air-fluid levels in nondilated bowel loops may reflect some gastroenteritis or ileus and are nonspecific. No definite evidence of obstruction at this time. 2. Negative PA chest. Electronically Signed by Tushar Cordoba MD 02/17/2019 10:05 A
== END 2019-02-16 19:38 | disposition home or self-care (01) ==
LOC: M ED 14:29
DX: R10.30 Lower abdominal pain, unspecified (principal); Z91.030 Bee allergy status; Z79.899 Other long term (current) drug therapy
CPT/HCPCS: 74021; 76830; 76856; 80048; 80076; 81001; 83690; 84702; 85025; 93976; 96374; 96375; 99284; J1885; J2270; J2405

== ENCOUNTER → 2019-06-03 | Outpatient (CLI) | payer OTHER ==
[~2019-06-03] MED LIST changes: -OMEP40CA2; +OMEP40CA97; +SIME180C PO
[2019-06-03 10:49] LABS: HEMATOCRIT 42.6 % (36.0-47.0); HEMOGLOBIN 13.8 g/dl (12.0-15.5); MEAN CORPUSCULAR HEMOGLOBIN 30.8 pg (27.0-33.0); MEAN CORPUSCULAR HGB CONC 32.4 g/dl (32.0-36.5); MEAN CORPUSCULAR VOLUME 95.1 fl (80.0-96.0); PLATELET COUNT, AUTOMATED 272 10^3/uL (150-450); RED BLOOD COUNT 4.48 10^6/uL (4.00-5.40); WHITE BLOOD COUNT 6.4 10^3/uL (4.0-10.0)
[2019-06-03 11:30] LABS: ALBUMIN 3.8 GM/DL (3.2-5.2); ALT/SGPT 32 U/L (12-78); BILIRUBIN,TOTAL 0.7 MG/DL (0.2-1.0); BLOOD UREA NITROGEN 12 MG/DL (7-18); CALCIUM LEVEL 8.9 MG/DL (8.5-10.1); CARBON DIOXIDE LEVEL 29 MEQ/L (21-32); CHLORIDE LEVEL 105 MEQ/L (98-107); CHOLESTEROL LEVEL 170 MG/DL (<200); CHOLESTEROL RISK RATIO 2.833 (<5); CREATININE FOR GFR 0.61 MG/DL (0.55-1.30); GLOMERULAR FILTRATION RATE > 60.0 (>60); GLUCOSE, FASTING 82 MG/DL (70-100); HDL CHOLESTEROL 60 MG/DL (>40); IRON (FE) 88 UG/DL (50-170); LDL CHOLESTEROL 95 MG/DL (<100); NON-HDL-C 110 MG/DL; PERCENT SATURATION 23.5 % (13.2-45.0); POTASSIUM SERUM 4.3 MEQ/L (3.5-5.1); SODIUM LEVEL 140 MEQ/L (136-145); THYROXINE (T4) 9.3 UG/DL (4.5-12.0); TOTAL IRON BINDING CAPACITY 374 UG/DL (250-450); TOTAL PROTEIN 6.9 GM/DL (6.4-8.2); TOTAL T3 123.4 NG/DL (60.0-181.0); TRIGLYCERIDES LEVEL 77 MG/DL (<150); VITAMIN B12 LEVEL 1850 PG/ML (247-911)
[2019-06-03 14:06] LABS: HEMOGLOBIN A1c 4.9 %
--- NOTE | 2019-06-03 21:20 | ECGEPIP ---
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
--- NOTE | 2019-06-04 04:15 | REP ---
Clinical: Hypertension and fatigue . Comparison: 09/04/2017 . Technique: PA and lateral. Findings: The mediastinum and cardiac silhouette are normal. The lung diaz are clear and without acute consolidation, effusion, or pneumothorax. The skeletal structures are intact and normal. Impression: 1. No acute cardiopulmonary process. Electronically Signed by Anuel Shirley MD 06/04/2019 04:07 A
== END ==
LOC: M LAB 09:11
PROVIDERS: ATTEND Family Medicine
DX: I10 Essential (primary) hypertension (principal)

== ENCOUNTER → 2019-06-25 | Outpatient (CLI) | payer OTHER ==
[2019-06-25 16:20] LABS: RUBELLA IgG QUALITATIVE IMMUNE (IMMUNE)
== END ==
LOC: M LAB 14:14
PROVIDERS: ATTEND Family Medicine
DX: Z00.00 Encounter for general adult medical examination without abnormal findings (principal)

== ENCOUNTER 2020-01-19 20:30 | Emergency (ER) | payer OTHER ==
[~2020-01-19] VITALS: Ht 175.3 cm; Wt 127.9 kg
[~2020-01-19 20:30] MED LIST changes: -ALL10TAB29; +CETI-24; +CYCL-707 PO; -CYCL10TA PO
[2020-01-19] MEDS ORDERED: VITA50005 (20:52)
[2020-01-19] MEDS ORDERED: AUGM875T28 PO (22:40)
[2020-01-19 22:53] VITALS: BP 131/65
== END 2020-01-19 22:54 | disposition home or self-care (01) ==
LOC: M ED 20:30
DX: J02.0 Streptococcal pharyngitis (principal); I10 Essential (primary) hypertension; J30.2 Other seasonal allergic rhinitis; Z91.030 Bee allergy status; Z87.891 Personal history of nicotine dependence; Z98.84 Bariatric surgery status; Z79.899 Other long term (current) drug therapy

== ENCOUNTER 2020-03-05 17:25 | Emergency (ER) | payer OTHER ==
[~2020-03-05] VITALS: Ht 175.3 cm; Wt 129.7 kg
[2020-03-05] MEDS ORDERED: AMOX875T2 PO (19:00)
[2020-03-05] MEDS ORDERED: FLUC150T PO (19:00)
[2020-03-05] MEDS ORDERED: FLUTISP INH (19:00)
--- NOTE | 2020-03-05 19:02 | REPVR ---
PROCEDURE INFORMATION: Exam: XR Chest, 2 Views Exam date and time: 03/05/2020 6:42 PM Age: 39 years old Clinical indication: Cough; Additional info: Chest congestion x 2 dys, ? infiltrate TECHNIQUE: Imaging protocol: XR of the chest Views: 2 views. COMPARISON: CR Chest, 2 view PA, Lat 06/03/2019 9:38 AM FINDINGS: Lungs: Unremarkable. No consolidation. Pleural space: Unremarkable. No pleural effusion. No pneumothorax. Heart/Mediastinum: Unremarkable. No cardiomegaly. Bones/joints: Unremarkable. IMPRESSION: No acute findings. Electronically signed by: Bushra Deluna On 03/05/2020 19:01:40 PM
[2020-03-05 19:22] VITALS: BP 126/60
== END 2020-03-05 19:24 | disposition home or self-care (01) ==
LOC: M ED 17:25
DX: J02.0 Streptococcal pharyngitis (principal); M79.10 Myalgia, unspecified site; J32.9 Chronic sinusitis, unspecified; I10 Essential (primary) hypertension; E66.01 Morbid (severe) obesity due to excess calories; Z68.41 Body mass index [BMI] 40.0-44.9, adult; Z91.030 Bee allergy status; Z79.899 Other long term (current) drug therapy; Z79.2 Long term (current) use of antibiotics
CPT/HCPCS: 71046; 87880; 99283; U0003

== ENCOUNTER → 2020-06-16 | Outpatient (CLI) | payer OTHER ==
[~2020-06-16] MED LIST changes: +AMOX875T2 PO; +FLUC150T PO; +FLUTISP INH
[2020-06-16 12:33] LABS: HEMATOCRIT 41.3 % (36.0-47.0); MEAN CORPUSCULAR HEMOGLOBIN 30.7 pg (27.0-33.0); MEAN CORPUSCULAR HGB CONC 33.9 g/dl (32.0-36.5); MEAN CORPUSCULAR VOLUME 90.6 fl (80.0-96.0); PLATELET COUNT, AUTOMATED 274 10^3/uL (150-450); RED BLOOD COUNT 4.56 10^6/uL (4.00-5.40); WHITE BLOOD COUNT 6.5 10^3/uL (4.0-10.0)
[2020-06-16 13:08] LABS: ALBUMIN 3.8 GM/DL (3.2-5.2); ALT/SGPT 41 U/L (12-78); BILIRUBIN,TOTAL 0.8 MG/DL (0.2-1.0); BLOOD UREA NITROGEN 18 MG/DL (7-18); CALCIUM LEVEL 9.1 MG/DL (8.5-10.1); CARBON DIOXIDE LEVEL 32 MEQ/L (21-32); CHLORIDE LEVEL 103 MEQ/L (98-107); CHOLESTEROL LEVEL 192 MG/DL (<200); CREATININE FOR GFR 0.74 MG/DL (0.55-1.30); GLOMERULAR FILTRATION RATE > 60.0 (>58); GLUCOSE, FASTING 91 MG/DL (70-100); HDL CHOLESTEROL 58 MG/DL (>40); LDL CHOLESTEROL 99 MG/DL (<100); NON-HDL-C 134 MG/DL; POTASSIUM SERUM 4.2 MEQ/L (3.5-5.1); SODIUM LEVEL 138 MEQ/L (136-145); TOTAL PROTEIN 7.1 GM/DL (6.4-8.2); TRIGLYCERIDES LEVEL 176 MG/DL (<150)
[2020-06-16 13:09] LABS: TOTAL 25(OH) VITAMIN D 49.2 NG/ML (30.0-100.0)
[2020-06-16 13:34] LABS: HEMOGLOBIN A1c 4.8 %
--- NOTE | 2020-06-17 04:36 | REP ---
INDICATION: HTN- LABS AND EKG FIRST COMPARISON: 03/05/2020 TECHNIQUE: PA and lateral. FINDINGS: The mediastinum and cardiac silhouette are normal. The lung diaz are clear and without acute consolidation, effusion, or pneumothorax. The skeletal structures are intact and normal. IMPRESSION: No acute cardiopulmonary process. <Electronically signed by Anuel Shirley > 06/17/20 [id number]
--- NOTE | 2020-06-17 15:18 | ECGEPIP ---
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 Different precordial lead placement from 06/03/19. Electronically Signed on 06-17-2020 15:18:36 EST by Ruiz Ruano
== END ==
LOC: M LAB 11:51
PROVIDERS: ATTEND Family Medicine
DX: E03.9 Hypothyroidism, unspecified (principal); R53.83 Other fatigue; I10 Essential (primary) hypertension

== ENCOUNTER → 2021-10-03 | Outpatient (CLI) | payer OTHER ==
[~2021-10-03] MED LIST changes: -CEFD1CAP8 PO; +CEFD300C41 PO; +ERGO500029; -FLUC150T PO; +FLUC150T9 PO; -OMEP-221; +OMEP40CA4; +OMEP40CA5; -OMEP40CA97; -SIME180C PO; +SIME180C25 PO
[2021-10-03 15:36] LABS: HEMATOCRIT 38.3 % (36.0-47.0); HEMOGLOBIN 13.1 g/dl (12.0-15.5); MEAN CORPUSCULAR HGB CONC 34.2 g/dl (32.0-36.5); MEAN CORPUSCULAR VOLUME 90.5 fl (80.0-96.0); PLATELET COUNT, AUTOMATED 348 10^3/uL (150-450); RED BLOOD COUNT 4.23 10^6/uL (4.00-5.40); WHITE BLOOD COUNT 8.9 10^3/uL (4.0-10.0)
[2021-10-03 16:06] LABS: HEMOGLOBIN A1c 5.2 %
[2021-10-03 16:16] LABS: ALBUMIN 4.1 GM/DL (3.2-5.2); ALT/SGPT 26 U/L (12-78); BILIRUBIN,TOTAL 0.7 MG/DL (0.2-1.0); BLOOD UREA NITROGEN 15 MG/DL (7-18); CARBON DIOXIDE LEVEL 25 MEQ/L (21-32); CHLORIDE LEVEL 107 MEQ/L (98-107); CHOLESTEROL LEVEL 212 MG/DL (<200); CREATININE FOR GFR 0.72 MG/DL (0.55-1.30); GLOMERULAR FILTRATION RATE > 60.0 (>58); GLUCOSE, FASTING 87 MG/DL (70-100); HDL CHOLESTEROL 40 MG/DL (>40); LDL CHOLESTEROL 102 MG/DL (<100); NON-HDL-C 172 MG/DL; POTASSIUM SERUM 4.1 MEQ/L (3.5-5.1); SODIUM LEVEL 138 MEQ/L (136-145); TOTAL 25(OH) VITAMIN D 58.6 NG/ML (30.0-100.0); TOTAL PROTEIN 7.4 GM/DL (6.4-8.2); TRIGLYCERIDES LEVEL 350 MG/DL (<150)
== END ==
LOC: M LAB 14:56
PROVIDERS: ATTEND Family Medicine
DX: I10 Essential (primary) hypertension (principal); D64.9 Anemia, unspecified; R53.83 Other fatigue

== ENCOUNTER → 2024-03-15 | Outpatient (CLI) | payer OTHER ==
[~2024-03-15] MED LIST changes: +CEFD1CAP9 PO; -CEFD300C41 PO; -SIME180C25 PO; +SIME1CAP4 PO; -TRIA37.53; +TRIA37.577
[2024-03-15 14:57] LABS: HEMOGLOBIN 12.9 g/dl (12.0-15.5); MEAN CORPUSCULAR HEMOGLOBIN 31.8 pg (27.0-33.0); MEAN CORPUSCULAR HGB CONC 34.9 g/dl (32.0-36.5); MEAN CORPUSCULAR VOLUME 91.1 fl (80.0-96.0); PLATELET COUNT, AUTOMATED 281 10^3/uL (150-450); RED BLOOD COUNT 4.06 10^6/uL (4.00-5.40); WHITE BLOOD COUNT 6.2 10^3/uL (4.0-10.0)
[2024-03-15 15:24] LABS: HEMOGLOBIN A1c 5.1 % (4.0-6.0)
[2024-03-15 15:44] LABS: ALBUMIN 3.6 G/DL (3.2-5.2); ALKALINE PHOSPHATASE 63 U/L (35-104); ALT/SGPT 19 U/L (7.0-40); AST/SGOT < 8 U/L (<34); BILIRUBIN,TOTAL 0.8 MG/DL (0.3-1.2); BLOOD UREA NITROGEN 20 MG/DL (9-23); CALCIUM LEVEL 9.2 MG/DL (8.5-10.1); CARBON DIOXIDE LEVEL 27 MMOL/L (20-31); CHLORIDE LEVEL 108 MMOL/L (98-107); CHOLESTEROL LEVEL 149 MG/DL (<200); CHOLESTEROL RISK RATIO 3.54 (<5); CREATININE FOR GFR 0.56 MG/DL (0.55-1.30); GLOMERULAR FILTRATION RATE > 60.0 (>58); GLUCOSE, FASTING 94 MG/DL (60-100); LDL CHOLESTEROL 80.4 MG/DL (<100); SODIUM LEVEL 140 MMOL/L (136-145); TOTAL PROTEIN 6.3 G/DL (5.7-8.2); TRIGLYCERIDES LEVEL 133 MG/DL (<150)
[2024-03-15 15:46] LABS: THYROID STIMULATING HORMONE 0.904 uIU/ML (0.55-4.78); TOTAL 25(OH) VITAMIN D 64.7 NG/ML (20.0-100.0)
== END ==
LOC: M RAD 13:20
PROVIDERS: ATTEND Family Medicine
DX: R53.83 Other fatigue (principal); I10 Essential (primary) hypertension; E03.9 Hypothyroidism, unspecified

== ENCOUNTER → 2024-04-14 | Outpatient (CLI) | payer OTHER | LOC: M WHC 11:23 | PROVIDERS: ATTEND Family Medicine | DX: Z12.31 Encounter for screening mammogram for malignant neoplasm of breast (principal) ==

== ENCOUNTER 2024-04-29 09:53 | Emergency (ER) | payer OTHER ==
[~2024-04-29] VITALS: Ht 175.3 cm; Wt 109.1 kg
[2024-04-29 12:53] LABS: BASO % 0.3 % (0.0-1.0); EOS # 0.1 10^3/uL (0.0-0.5); EOS % 1.3 % (0.0-3.0); HEMATOCRIT 38.4 % (36.0-47.0); HEMOGLOBIN 13.3 g/dl (12.0-15.5); LYMPH # 2.8 10^3/uL (1.5-5.0); LYMPH % 28.6 % (24.0-44.0); MEAN CORPUSCULAR HEMOGLOBIN 31.7 pg (27.0-33.0); MEAN CORPUSCULAR HGB CONC 34.6 g/dl (32.0-36.5); MEAN CORPUSCULAR VOLUME 91.6 fl (80.0-96.0); MONO # 0.9 10^3/uL (0.0-0.8); MONO % 9.2 % (2.0-8.0); NEUTROPHILS # 5.8 10^3/uL (1.5-8.5); NEUTROPHILS % 60.3 % (36.0-66.0); PLATELET COUNT, AUTOMATED 283 10^3/uL (150-450); RED BLOOD COUNT 4.19 10^6/uL (4.00-5.40); WHITE BLOOD COUNT 9.7 10^3/uL (4.0-10.0)
[2024-04-29 13:26] LABS: ALBUMIN 3.8 G/DL (3.2-5.2); ALKALINE PHOSPHATASE 65 U/L (35-104); ALT/SGPT 19 U/L (7.0-40); AST/SGOT < 8 U/L (<34); BILIRUBIN,TOTAL 0.8 MG/DL (0.3-1.2); BLOOD UREA NITROGEN 18 MG/DL (9-23); CALCIUM LEVEL 9.4 MG/DL (8.5-10.1); CARBON DIOXIDE LEVEL 30 MMOL/L (20-31); CHLORIDE LEVEL 102 MMOL/L (98-107); CREATININE FOR GFR 0.59 MG/DL (0.55-1.30); GLOMERULAR FILTRATION RATE > 60.0 (>58); GLUCOSE, FASTING 97 MG/DL (60-100); POTASSIUM SERUM 3.6 MMOL/L (3.5-5.1); SODIUM LEVEL 140 MMOL/L (136-145)
[2024-04-29] MEDS: CLINDAMYCIN 900 MG in IV 1 EA IV SCH (13:34)
[2024-04-29] MEDS: LIDOCAINE 1% MDV 20ML VIAL SC ONE (14:45)
[2024-04-29] MEDS ORDERED: CLIN-250 PO (15:24)
[2024-04-29 15:36] VITALS: BP 129/69; TEMP 97.7; O2SAT 98
[2024-05-02] MEDS ORDERED: DOXY100C82 PO (07:23)
== END 2024-04-29 15:41 | disposition home or self-care (01) ==
LOC: M ED 09:53
DX: L02.211 Cutaneous abscess of abdominal wall (principal); I10 Essential (primary) hypertension; Z91.030 Bee allergy status; Z79.2 Long term (current) use of antibiotics; Z79.899 Other long term (current) drug therapy
CPT/HCPCS: 10060; 76705; 80053; 83605; 85025; 87040; 87070; 87077; 87186; 96365; 96366; 96372; 99283; J0737

== ENCOUNTER 2024-04-30 04:40 | Emergency (ER) | payer OTHER ==
[~2024-04-30] VITALS: Ht 175.3 cm; Wt 122.3 kg
[~2024-04-30 04:40] MED LIST changes: +CLIN-250 PO
[2024-04-30 08:05] VITALS: BP 133/66; TEMP 96.9; O2SAT 96
== END 2024-04-30 08:05 | disposition home or self-care (01) ==
LOC: M ED 04:40
DX: Z48.01 Encounter for change or removal of surgical wound dressing (principal); Z91.030 Bee allergy status; Z79.2 Long term (current) use of antibiotics; Z79.899 Other long term (current) drug therapy

== ENCOUNTER 2025-02-01 22:21 | Emergency (ER) | payer OTHER ==
[~2025-02-01] VITALS: Ht 170.2 cm; Wt 129.5 kg
[~2025-02-01 22:21] MED LIST changes: +DOXY-442 PO
[2025-02-02] MEDS: CLINDAMYCIN 150 MG CAPSULE PO ONE (02:39)
[2025-02-02] MEDS: IBUPROFEN 800 MG TAB PO ONE (02:40)
[2025-02-02 03:17] LABS: BASO # 0.0 10^3/uL (0.0-0.2); BASO % 0.5 % (0.0-1.0); EOS # 0.2 10^3/uL (0.0-0.5); EOS % 2.4 % (0.0-3.0); LYMPH # 2.8 10^3/uL (1.5-5.0); LYMPH % 36.4 % (24.0-44.0); MONO # 0.8 10^3/uL (0.0-0.8); MONO % 10.0 % (2.0-8.0); NEUTROPHILS # 3.8 10^3/uL (1.5-8.5); NEUTROPHILS % 50.4 % (36.0-66.0); PLATELET COUNT, AUTOMATED 271 10^3/uL (150-450)
[2025-02-02 03:45] LABS: HCG, SERUM QUANTITATIVE < 2.6 MIU/ML (<4.2)
[2025-02-02 03:46] LABS: ALT/SGPT 18 U/L (7.0-40); AST/SGOT 12 U/L (<34); C REACTIVE PROTEIN QUANTITATIV 1.67 MG/DL (<1.0); CALCIUM LEVEL 8.2 MG/DL (8.5-10.1); CARBON DIOXIDE LEVEL 24 MMOL/L (20-31); CHLORIDE LEVEL 109 MMOL/L (98-107); CREATININE FOR GFR 0.49 MG/DL (0.55-1.30); GLOMERULAR FILTRATION RATE > 90.0 (>58); POTASSIUM SERUM 4.1 MMOL/L (3.5-5.1); SODIUM LEVEL 140 MMOL/L (136-145)
[2025-02-02] MEDS ORDERED: LIDOCAINE 1% MDV 20 ML VIAL As Ordered ONE (04:05)
[2025-02-02] MEDS: LIDOCAINE 1% MDV 20 ML VIAL INFIL ONE (04:10)
[2025-02-02] MEDS ORDERED: PROBCAP14 PO (05:58)
[2025-02-02] MEDS ORDERED: CLEO300C2 PO (05:58)
[2025-02-02 06:27] VITALS: BP 145/70; TEMP 97; O2SAT 98
== END 2025-02-02 06:28 | disposition home or self-care (01) ==
LOC: M ED 22:21
DX: L02.411 Cutaneous abscess of right axilla (principal); I10 Essential (primary) hypertension; K21.9 Gastro-esophageal reflux disease without esophagitis; Z91.030 Bee allergy status; Z79.2 Long term (current) use of antibiotics; Z79.899 Other long term (current) drug therapy